=== PATIENT | female | born 1955 | race Caucasian/White ===

== ENCOUNTER → 2018-02-14 | Outpatient (CLI) | payer OTHER | LOC: M.ULTRA 08:47 | DX: R74.8 Abnormal levels of other serum enzymes (principal); K76.0 Fatty (change of) liver, not elsewhere classified ==

== ENCOUNTER → 2018-02-20 | Outpatient (CLI) | payer OTHER ==
[2018-02-20 14:07] LABS: ABSOLUTE EOSINOPHILS 0.2 thou/uL (0.0-0.7); ABSOLUTE LYMPHOCYTES 1.6 thou/uL (0.8-5.3); ABSOLUTE MONOCYTES 0.6 thou/uL (0.0-1.2); BASOPHILS 0.6 %; EOSINOPHILS 2.8 %; HEMATOCRIT 42.9 % (37.0-47.0); HEMOGLOBIN 14.5 gm/dL (12.0-15.0); LYMPHOCYTES 29.8 %; MCH 31.1 pg (26.0-34.0); MCHC 33.8 g/dL (28.0-37.0); MCV 92.2 fL (80.0-100.0); MONOCYTES 11.7 %; MPV 7.4 fl. (7.2-11.1); NUCLEATED RBCS 0 /100WBC; PLATELET COUNT* 233 thou/uL (150-400); POLYS 55.1 %; RBC 4.66 mil/uL (4.20-5.00); RDW-CV 12.9 % (10.5-14.5); WBC 5.5 thou/uL (4.0-11.0)
[2018-02-20 14:18] LABS: ALBUMIN 4.1 g/dL (3.4-5.0); CALCIUM 9.1 mg/dL (8.5-10.1); CREATININE 1.2 mg/dL (0.6-1.3); POTASSIUM 3.4 mmol/L (3.5-5.1); TOTAL BILIRUBIN 1.6 mg/dL (<0.1-1.0); TOTAL PROTEIN 7.7 g/dL (6.4-8.2)
== END ==
LOC: M.LAB 13:48
PROVIDERS: Nurse Practitioner Adult Health
DX: R10.9 Unspecified abdominal pain (principal); R11.0 Nausea

== ENCOUNTER → 2018-02-21 | Outpatient (CLI) | payer OTHER | LOC: M.CT 11:47 | DX: K57.30 Diverticulosis of large intestine without perforation or abscess without bleeding (principal); R10.9 Unspecified abdominal pain ==

== ENCOUNTER → 2018-06-16 | Outpatient (CLI) | payer OTHER ==
[2018-06-16 15:16] LABS: ABSOLUTE EOSINOPHILS 0.1 thou/uL (0.0-0.7); ABSOLUTE NEUTROPHILS 11.5 thou/uL (1.6-8.1); BASOPHILS 0.1 %; EOSINOPHILS 0.6 %; HEMATOCRIT 43.4 % (37.0-47.0); HEMOGLOBIN 14.4 gm/dL (12.0-15.0); LYMPHOCYTES 13.5 %; MCH 30.4 pg (26.0-34.0); MCHC 33.2 g/dL (28.0-37.0); MCV 91.6 fL (80.0-100.0); MONOCYTES 6.9 %; MPV 7.2 fl. (7.2-11.1); NUCLEATED RBCS 0 /100WBC; PLATELET COUNT* 286 thou/uL (150-400); POLYS 78.9 %; RBC 4.73 mil/uL (4.20-5.00); RDW-CV 12.8 % (10.5-14.5); WBC 14.6 thou/uL (4.0-11.0)
[2018-06-16 15:33] LABS: ALBUMIN 3.8 g/dL (3.4-5.0); CALCIUM 9.3 mg/dL (8.5-10.1); CREATININE 1.1 mg/dL (0.6-1.3); POTASSIUM 3.1 mmol/L (3.5-5.1); TOTAL BILIRUBIN 1.4 mg/dL (<0.1-1.0); TOTAL PROTEIN 7.8 g/dL (6.4-8.2)
== END ==
LOC: M.LAB 14:59 → M.RAD 14:59
PROVIDERS: Nurse Practitioner Adult Health
DX: R14.0 Abdominal distension (gaseous) (principal); R19.5 Other fecal abnormalities

== ENCOUNTER → 2018-10-31 | Outpatient (CLI) | payer MEDICARE, OTHER | LOC: M.RAD 10:12 | DX: Z12.31 Encounter for screening mammogram for malignant neoplasm of breast (principal) ==

== ENCOUNTER → 2018-11-26 | Outpatient (CLI) | payer MEDICARE, OTHER | LOC: M.NUC 10:01 | DX: M16.12 Unilateral primary osteoarthritis, left hip (principal); Z96.641 Presence of right artificial hip joint ==

== ENCOUNTER → 2018-12-18 | Outpatient (CLI) | payer MEDICARE, OTHER | LOC: M.ULTRA 12-11 10:00 | DX: N28.1 Cyst of kidney, acquired (principal); Q62.11 Congenital occlusion of ureteropelvic junction; Z88.0 Allergy status to penicillin; Z88.8 Allergy status to other drugs, medicaments and biological substances ==

== ENCOUNTER → 2019-01-05 | Outpatient (CLI) | payer MEDICARE, OTHER ==
--- NOTE | 2019-01-05 11:02 | 2DMMODE ---
[place] [address] 2 D/M-MODE ECHOCARDIOGRAM Name: EMILY THIBODEAUX Room: [facility]#: [id number] Admission: 01/05/19 Attend Phys: Roc Salcedo, Discharge: Date of : 51 Date of Service: 01/05/19 1102 Report #: [id number] THIS REPORT FOR: //name// APPROVED REPORT Study performed: 01/05/2019 09:32:24 EXAM: Comprehensive 2D, Doppler, and color-flow Echocardiogram Patient Location: Out-Patient BSA: 1.79 HR: 68 bpm BP: 157/101 mmHg Other Information Study Quality: Good Indications Dyspnea Chest Pain 2D Dimensions IVSd: 10.80 (7-11mm) LVOT Diam: 20.56 (18-24mm) LVDd: 46.70 mm PWd: 8.83 (7-11mm) Ascending Ao: 28.40 (22-36mm) LVDs: 26.03 (25-40mm) Aortic Root: 29.01 mm Volumes Left Atrial Volume (Systole) LA ESV Index: 21.40 mL/m2 Aortic Valve AoV Peak Abimael.: 1.27 m/s AO Peak Gr.: 6.46 mmHg LVOT Max P.07 mmHg AO Mean Gr.: 3.23 mmHg LVOT Mean P.82 mmHg LVOT Max V: 1.01 m/s AO V2 VTI: 26.71 cm LVOT Mean V: 0.60 m/s VINCE (VTI): 3.13 cm2 LVOT V1 VTI: 25.16 cm Mitral Valve E/A Ratio: 1.14 MV Decel. Time: 190.62 ms MV E Max Abimael.: 0.87 m/s MV PHT: 55.28 [place] [address] 2 D/M-MODE ECHOCARDIOGRAM Name: EMILY THIBODEAUX Room: [facility]#: [id number] Admission: 01/05/19 Attend Phys: Roc Salcedo, Discharge: Date of : 51 Date of Service: 01/05/19 1102 Report #: [id number] MVA (PHT): 3.98 cm2 TDI E/Lateral E': 6.21 E/Medial E': 10.88 Medial E' Abimael.: 0.08 m/s Lateral E' Abimael.: 0.14 m/s Pulmonary Valve PV Peak Abimael.: 0.95 m/s PV Peak Gr.: 3.64 mmHg Tricuspid Valve RAP Estimate: 5.00 mmHg TR Peak Gr.: 22.57 mmHg RVSP: 27.57 mmHg PA Pressure: 27.57 mmHg Left Ventricle The left ventricle is normal size. There is normal LV segmental wall motion. There is normal left ventricular wall thickness. Left ventricular systolic function is normal. The left ventricular ejection fraction is within the normal range. LVEF is 55-60%. The left ventricular diastolic function is normal. Right Ventricle The right ventricle is normal size. The right ventricular systolic function is normal. Atria The left atrium size is normal. The right atrium size is normal. Aortic Valve The aortic valve is normal in structure. No aortic regurgitation is present. There is no aortic valvular stenosis. Mitral Valve The mitral valve is normal in structure. Trace mitral regurgitation. No evidence of mitral valve stenosis. Tricuspid Valve The tricuspid valve is normal in structure. Mild tricuspid regurgitation. estimated pa pressure 30 mm Hg Pulmonic Valve The pulmonary valve is normal in structure. There is no pulmonic [place] [address] 2 D/M-MODE ECHOCARDIOGRAM Name: EMILY THIBODEAUX Room: [facility]#: [id number] Admission: 01/05/19 Attend Phys: Roc Salcedo, Discharge: Date of : 51 Date of Service: 01/05/19 1102 Report #: [id number] Great Vessels The aortic root is normal in size. IVC is normal in size and collapses >50% with inspiration. Pericardium There is no pericardial effusion. <Conclusion> Left ventricular systolic function is normal. The left ventricular ejection fraction is within the normal range. <ELECTRONICALLY SIGNED> By: Roc Simpson MD, FACC 01/05/19 1102 01 01 Roc Simpson MD, FAC /INF
--- NOTE | 2019-01-05 17:53 | CARDNUC ---
[place] [address] CARDIAC NUCLEAR IMAGING REPORT Name: EMILY THIBODEAUX Room: [facility]#: [id number] Admission: 01/05/19 Attend Phys: Roc Salcedo, Discharge: Date of : 51 Date of Service: 01/05/19 1753 Report #: [id number] THIS REPORT FOR: //name// APPROVED REPORT Study performed: 01/05/2019 09:22:06 Indication: Chest pain, Dyspnea Patient Location: Out-Patient Stress Tech: Geena Lou Stress Nurse: Charla Smith RN Ht: 5 ft 1 in Wt: 176 lbs BSA: 1.79 m2 BMI: 33.25 Medical History Medical History: Angina, HTN, Obesity , SOB. Medications: Amlodipine, Lisinopril. Allergies: Augmentin, Cefprazil, Amoxicillin, Oxycodon, Hydrocodone, Percocet, levofloxacin, Piroxicam, Prochlorperizine, Sertraline, Valachclovir. Cardiac Risk Factors: Age, FHX of CAD, HTN, SOB. Previous Cardiac Procedures: None Pretest Chest Pain Characteristics: No chest pain Exercise History: Indeterminate Physical Disabilities: Knees, SOA. Meds Held (24 hrs): None Resting Data Rest SPECT myocardial perfusion imaging was performed in supine position 30 minutes following the intravenous injection of 11.0 mCi of Tc-99m Sestamibi. Time of rest injection: 0755 The images were gated to evaluate regional wall motion and calculate left ventricular ejection fraction. Administration Route: IV Administration Site: [facility] Pharmacologic Stress Pharmacologic stress test was performed by injecting Regadenoson 0.4 mg IV push over 10-15 seconds immediately followed by the intravenous injection of 32.0 mCi of Tc-99m Sestamibi. Time of stress injection: 0930 Administration Route: IV Administration Site: [place] [address] CARDIAC NUCLEAR IMAGING REPORT Name: EMILY THIBODEAUX Room: [facility]#: [id number] Admission: 01/05/19 Attend Phys: Roc Salcedo, Discharge: Date of : 51 Date of Service: 01/05/19 1753 Report #: [id number] Heart Rate at time of stress injection: 118 bpm. Gated Stress SPECT was performed 45 minutes after stress injection. The images were gated to evaluate regional wall motion and calculate left ventricular ejection fraction. Prone imaging was performed. Stress Test Details Stress Test: Pharmacologic stress was paired with low level exercise. Reason for pharmacologic stress test: Knee pain/weak, SOA.. HR Max Heart Rate (APMHR): 155 bpm Resting HR: 59 bpm Target HR (85% APMHR): 131 bpm Max HR Achieved: 125 bpm % of APMHR: 80 Recovery HR: 77 bpm BP Resting BP: 157/101 mmHg Max BP: 182/115 mmHg Recovery BP: 174/92 mmHg ECG Resting ECG: Sinus Rhythm Stress ECG: Sinus Tachycardia ST Change: Downsloping ST depression Maximum ST Deviation: 0.5 mm Arrhythmia: None Recovery ECG: Sinus Rhythm Recovery ST Change: Downsloping ST depression Recovery ST Deviation: 0.5 mm Recovery Arrhythmia: None Clinical Reason for Termination: Completed protocol Stress Symptoms: Dyspnea, Headache, Nausea. Exercise duration: 4 min 00 sec Exercise capacity: 2.30 METs The patient had no significant cardiac symptoms with Lexiscan infusion. Nurse Comments 63 year old female presented with recent HX of CP and Dyspnea. Patient tolerated walking Lexiscan with SOA early into walk. Recovery unremarkable with PO caffeine, effective. Patient was escorted by staff to Echo then Nuclear Medicine for images. [place] [address] CARDIAC NUCLEAR IMAGING REPORT Name: EMILY THIBODEAUX SAMSON Room: [facility]#: [id number] Admission: 01/05/19 Attend Phys: Roc Salcedo, Discharge: Date of : 51 Date of Service: 01/05/19 1753 Report #: [id number] with no compliants at end of test. Stress ECG Conclusion The baseline EKG show sinus rhythm without significant ST segment abnormality. EKGs during and post Lexiscan infusion show sinus rhythm with 0.[address] segment depression isolated to lead III. There were no stress-induced arrhythmias. Study Quality Study: Good Artifact: Mild Breast artifact Study Data At rest, the left ventricular ejection fraction was 55%.. Post stress, the left ventricular ejection was 58%.. TID = 1.01. Perfusion There is mild photopenia in the mid to distal anterior wall on resting images that appears more pronounced on stress images. This suggests a region of breast attenuation artifact. The defect appears more pronounced in the anteroapical region suggesting ischemia in this region. Wall Motion Very subtle hypokinesis of the anteroseptal apical region. No other wall motion abnormalities noted. Nuclear Conclusion ECG Findings: equivocal Clinical Findings: negative for ischemia Nuclear Findings: positive for ischemia Exercise Capacity: not assessed Left Ventricular Function: preserved Risk Study: moderate Perfusion images suggest possible ischemia the anteroapical region superimposed on top of breast attenuation artifact. Global LV systolic function is well-preserved focal wall motion abnormality in the anteroapical region. This is a moderate risk study. <Conclusion> The baseline EKG show sinus rhythm without significant ST segment abnormality. EKGs during and post Lexiscan infusion [place] [address] CARDIAC NUCLEAR IMAGING REPORT Name: EMILY THIBODEAUX SAMSON Room: [facility]#: [id number] Admission: 01/05/19 Attend Phys: Roc Salcedo, Discharge: Date of : 51 Date of Service: 01/05/19 1753 Report #: [id number] with 0.[address] segment depression isolated to lead III. There were no stress-induced arrhythmias. <ELECTRONICALLY SIGNED> By: Chilango Winters MD, FACC 01/05/19 1753 [id number] Chilango Winters MD, FACC /INF
== END ==
LOC: M.NUC 07:29
DX: I07.1 Rheumatic tricuspid insufficiency (principal); R11.0 Nausea; R51 Headache; I10 Essential (primary) hypertension; E66.09 Other obesity due to excess calories; I25.10 Atherosclerotic heart disease of native coronary artery without angina pectoris

== ENCOUNTER → 2019-02-25 | Outpatient (CLI) | payer MEDICARE, OTHER | END | disposition home or self-care (01) | LOC: M.RAD 09:36 | DX: M25.552 Pain in left hip (principal); M16.12 Unilateral primary osteoarthritis, left hip; G89.29 Other chronic pain; M19.90 Unspecified osteoarthritis, unspecified site; Z98.890 Other specified postprocedural states; Z79.899 Other long term (current) drug therapy; Z88.0 Allergy status to penicillin; Z88.8 Allergy status to other drugs, medicaments and biological substances ==